=== PATIENT | female | born 1945 | race Caucasian/White ===

== ENCOUNTER 2019-01-13 12:56 | Inpatient (IN) | payer MEDICARE ==
[~2019-01-13] VITALS: Ht 157.5 cm; Wt 73.1 kg
[2019-01-13] VITALS (20 sets, daily range): BP systolic 81–123; BP diastolic 46–86
[~2019-01-13 12:56] MED LIST: ALEVE220 M1 PO; BACTRIM DS TAB1 EACH PO; BONIVA150 MG PO; CENTRUM SILVER1 EAC1 PO; DIOVAN HCT 3201 EAC1 PO; FIBER PO; FLONASE16 GM INH; GLUCOSAMINE &1 EAC1 PO; LEVOFLOXACIN750 MG PO; NORCO 7.5-3251 EACH PO; PANTOPRAZOLE SO40 MG PO
[2019-01-13] MEDS ORDERED: SODIUM CHLORIDE 0.9% 1000ML 1,000 ML IV STA (13:02)
[2019-01-13] MEDS ORDERED: SODIUM CHLORIDE 0.9% 1000ML 2,000 ML ONE (13:07)
[2019-01-13 13:19] LABS: BASOPHILS % 0.5 % (0.0-1.0); EOSINOPHILS # (AUTO) 0.1 (0.0-0.4); EOSINOPHILS % 1.1 % (0.0-6.0); HEMATOCRIT 28.4 % (34.2-44.1); HEMOGLOBIN 9.7 g/dL (12.0-16.0); LYMPHOCYTES # (AUTO) 1.8 (1.0-3.2); LYMPHOCYTES % 24.2 % (18.0-39.1); MEAN CORPUSCULAR HEMOGLOBIN 29.1 pg (28-32); MEAN CORPUSCULAR HGB CONC 34.2 g/dL (31-35); MEAN CORPUSCULAR VOLUME 85.3 fL (81-99); MONOCYTES # (AUTO) 0.6 (0.2-0.8); MONOCYTES % 7.3 % (4.4-11.3); NEUTROPHILS % 66.4 % (38.7-80.0); PLATELET COUNT 314 x10e3/uL (140-360); RED BLOOD COUNT 3.33 x10e6/uL (3.6-5.1); RED CELL DISTRIBUTION WIDTH 12.6 % (11.7-14.4)
[2019-01-13 13:29] LABS: INR 0.9; PROTHROMBIN TIME 12.6 seconds (11.9-14.5)
[2019-01-13] MEDS ORDERED: SODIUM CHLORIDE 0.9% 250ML 250 ML IV ONE (13:30)
[2019-01-13] MEDS ORDERED: SODIUM CHLORIDE 0.9% 1000ML 1,000 ML ONE (13:34)
[2019-01-13] MEDS: NOREPINEPHRINE 8 MG/D5W 250 ML 250 ML IV SCH (13:38)
[2019-01-13 13:45] LABS: ALBUMIN 2.9 g/dL (3.5-5.0); ALBUMIN/GLOBULIN RATIO 0.9 (0.8-2.0); ANION GAP 22.8 mmol/L (8-16); B-TYPE NATRIURETIC PEPTIDE2 85.4 pg/mL (0-100); CALCIUM 9.6 mg/dL (8.4-10.2); CREATININE, SERUM 10.95 mg/dL (0.57-1.11); POTASSIUM 4.8 mmol/L (3.5-5.1)
[2019-01-13 13:46] LABS: BILIRUBIN,URINE NEGATIVE (NEGATIVE); CLARITY,URINE CLOUDY (CLEAR); COLOR,URINE YELLOW (YELLOW); KETONES,URINE NEGATIVE (NEGATIVE); LEUKOCYTE ESTERASE ,URINE LARGE (NEGATIVE); NITRITE,URINE NEGATIVE (NEGATIVE); URINE UROBILINOGEN 0.2 mg/dL (0.2 - 1)
[2019-01-13 13:47] LABS: CREATINE KINASE MB 6.5 ng/mL (0-5.0)
[2019-01-13 13:50] LABS: PROTEIN,URINE DIPSTICK 3+ (NEGATIVE)
[2019-01-13 13:55] LABS: BACTERIA,URINE MANY /HPF; EPITHELIAL CELLS,URINE MANY /LPF; WBC,URINE (MAN) >50 /HPF (0-5)
[2019-01-13] MEDS ORDERED: SODIUM CHLORIDE 0.9% 1000ML 1,000 ML IV SCH ×3 (14:00→21:30)
[2019-01-13] MEDS: CEFTRIAXONE SOD 1 GM/NS 50 ML 50 ML IV SCH (14:07)
--- NOTE | 2019-01-13 14:54 | Diagnostic Imaging Report ---
A single frontal view of the chest. HISTORY: Weakness COMPARISON: None available. DISCUSSION: Portable technique, limits sensitivity of the exam. Overlying artifacts. Tubes/Lines: None Lungs and pleura: The lungs are well inflated. No evidence of a consolidative pneumonia or pulmonary alveolar edema. No definite pleural effusion or pneumothorax is identified. Heart and mediastinum: The cardiomediastinal silhouette appear(s) unremarkable. Bones and soft tissues: Appear unremarkable, given this limited exam. IMPRESSION: No acute radiographic abnormality. Signed by: Dr. Ethan Montero D.O., M.M.M. on 01/13/2019 2:51 PM
[2019-01-13] MEDS ORDERED: NOREPINEPHRINE 8 MG/D5W 250 ML 250 ML IV PRN (15:45)
[2019-01-13] MEDS ORDERED: ONDANSETRON HCL INJ 2MG/ML 2ML 2 MG/ML VIAL IV PRN (15:45)
--- OUTSIDE RECORDS SUMMARY | 2019-01-13 15:50 | XMS REPORT ---
[facility] Address Unknown Phone Unavailable Care Team Providers Care Mems Engineer Name Role Phone KAREN Petra CAIN Unavailable Unavailable Problems This patient has no known problems. Allergies, Adverse Reactions, Alerts This patient has no known allergies or adverse reactions. Medications This patient has no known medications. 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 HISTORY: Wea joy COMPARISON: None available. DISCUSSION: Portable technique, limits sensitivity of the exam. Overlying artifacts. Tubes/Lines: None Lungs and pleura: The lungs are well inflated. No evidence of a consolidative pneumonia or pulmonary alveolar edema. No definite pleural effusion or pneumothorax is identified. Heart and mediastinum: The cardiomediastinal silhouette appear(s) unremarkable. Bones and soft tissues: Appear unremarkable, given this limited exam. IMPRESSION: No acute radiographic abnormality. Signed by: Dr. Mere Montero D.O., M.M.M. on 01/13/2019 2:51 PM Dictated By: MERE MONTERO DO 50 Transcribed By: MAU on 01/13/191450 COPY TO: ZENA FLEMING NP
[2019-01-13] MEDS ORDERED: HYDRALAZINE HCL 20 MG/ML VIAL IV PRN (17:15)
[2019-01-13] MEDS: SODIUM CHLORIDE 0.9% 1000ML 1,000 ML IV SCH (17:45)
--- NOTE | 2019-01-13 18:40 | Diagnostic Imaging Report ---
History: Seizure, fall Comparison studies:None Technique: Axial images were obtained from the brain and cervical spine. Coronal and sagittal images reconstructed from the axial data. Intravenous contrast: None Dose modulation, iterative reconstruction, and/or weight based adjustment of the mA/kV was utilized to reduce the radiation dose to as low as reasonably achievable. Findings: Head CT: Scalp/skull: No abnormalities. No fractures, blastic or lytic lesions. Brain sulci: Mildly prominent. Ventricles: Mild compensatory dilatation. No hydrocephalus. Parenchyma: Scattered small hypodensities in the supratentorial white matter are small vessel ischemic changes. No masses, hemorrhage, acute or chronic cortical vascular insults. Sellar/suprasellar region: No abnormalities. Craniocervical junction: Patent foramen magnum. No Chiari one malformation. Incidental findings: Atherosclerotic calcifications in the carotid siphons . Cervical spine CT: Fractures: None. Soft tissues: No gross abnormalities. Atlantoaxial articulation: Degenerative changes without acute abnormality. Alignment: Straightening of the normal lordosis. Grade 1 anterolisthesis of C7-T1No scoliosis. Cervicomedullary junction: No abnormalities. Patent foramen magnum. Vertebrae: No infection or neoplasm. Degenerative changes: Uncinate process and facet hypertrophy results in moderate to severe multilevel foraminal narrowing from C3-C6. Disc degeneration with decreased intervertebral space and sclerotic changes from C4-C7. No high grade canal stenosis. Incidental findings: none. Impression: Head CT: 1. No acute abnormalities.. Cervical spine CT: 1. No acute abnormalities. 2. Cannot exclude ligament, spinal cord and or vascular abnormalities on the basis of this examination. Signed by: DR Can Nick M.D. on 01/13/2019 6:37 PM
[2019-01-13 18:59] LABS: CALCIUM 9.1 mg/dL (8.4-10.2); CREATININE, SERUM 9.1 mg/dL (0.57-1.11)
[2019-01-13 19:14] LABS: ANION GAP 18.7 mmol/L (8-16); POTASSIUM 4.7 mmol/L (3.5-5.1)
[2019-01-13] MEDS ORDERED: SODIUM CHLORIDE 0.9% 1000ML 500 ML IV SCH (20:45)
--- NOTE | 2019-01-13 22:07 | Diagnostic Imaging Report ---
Exam: Abdominal film Clinical History: Femoral line insertion Comparison: None. DISCUSSION: Right femoral approach central venous catheter tip projects over the expected region of the central right common iliac vein.. Bowel gas pattern is nonobstructive. No mass effect or organomegaly. Multilevel degenerative disc changes of the lumbar spine. IMPRESSION: Right femoral approach central venous catheter tip projects over the expected region of the central right common iliac vein. Signed by: Dr. Tre Paez M.D. on 01/13/2019 10:03 PM
[2019-01-13] MEDS ORDERED: VANCOMYCIN 1GM/NS 250 ML 250 ML IV ONE (22:15)
[2019-01-13 23:23] LABS: ANION GAP 16.3 mmol/L (8-16); CREATININE, SERUM 7.91 mg/dL (0.57-1.11); POTASSIUM 4.3 mmol/L (3.5-5.1)
[2019-01-13 23:36] LABS: MAGNESIUM 2.2 MG/DL (1.3-2.1); PHOSPHORUS 5.5 MG/DL (2.3-4.7)
[2019-01-14] VITALS (49 sets, daily range): BP systolic 84–112; BP diastolic 51–75
[2019-01-14] MEDS: SODIUM CHLORIDE 0.9% 1000ML 1,000 ML IV SCH ×2 (00:14→04:18)
[2019-01-14] MEDS: ACETAMINOPHEN 325 MG TAB PO PRN ×2 (02:20→08:23)
[2019-01-14 05:15] LABS: BASOPHILS % 0.5 % (0.0-1.0); EOSINOPHILS # (AUTO) 0.1 (0.0-0.4); EOSINOPHILS % 1.4 % (0.0-6.0); HEMATOCRIT 23.9 % (34.2-44.1); HEMOGLOBIN 7.9 g/dL (12.0-16.0); LYMPHOCYTES # (AUTO) 1.8 (1.0-3.2); LYMPHOCYTES % 27.7 % (18.0-39.1); MEAN CORPUSCULAR HEMOGLOBIN 29.2 pg (28-32); MEAN CORPUSCULAR HGB CONC 33.1 g/dL (31-35); MEAN CORPUSCULAR VOLUME 88.2 fL (81-99); MONOCYTES # (AUTO) 0.6 (0.2-0.8); NEUTROPHILS # (AUTO) 3.9 (2.1-6.9); NEUTROPHILS % 60.9 % (38.7-80.0); PLATELET COUNT 278 x10e3/uL (140-360); RED BLOOD COUNT 2.71 x10e6/uL (3.6-5.1); RED CELL DISTRIBUTION WIDTH 12.7 % (11.7-14.4)
[2019-01-14 05:41] LABS: ALBUMIN 2.4 g/dL (3.5-5.0); ANION GAP 13.4 mmol/L (8-16); CREATININE, SERUM 6.83 mg/dL (0.57-1.11); MAGNESIUM 2.3 MG/DL (1.3-2.1); POTASSIUM 4.4 mmol/L (3.5-5.1)
--- NOTE | 2019-01-14 05:41 | Diagnostic Imaging Report ---
Examination: Single AP view of the chest. COMPARISON: 01/13/2019 INDICATION: Screening DISCUSSION: Lines/tubes: None. Lungs: Lungs are well-inflated. New patchy opacity at the left lung base. Pleura: There is no pleural effusion or pneumothorax. Heart and mediastinum: The heart and the mediastinum are unremarkable. Bones and soft tissues: No acute bony abnormalities. Degenerative changes in the thoracic spine. IMPRESSION: New patchy opacity at the left lung base likely reflects atelectasis, though the differential diagnosis includes aspiration in the appropriate clinical setting. Signed by: Dr. Tre Paez M.D. on 01/14/2019 5:37 AM
--- NOTE | 2019-01-14 06:31 | Consultation ---
DATE OF CONSULTATION: 01/13/2019 Pulmonary and Critical Care Medicine Consult REASON FOR REFERRAL: Multi-organ failure dysfunction syndrome. HISTORY OF PRESENT ILLNESS: Ms. Gurrola is a pleasant 73-year-old female with multi-organ dysfunction syndrome. The patient with recent history of syncope. The patient recovered since from that event about one week ago. This patient remains in weakness, which is slowly worsening. The patient was carried in from the car. She had near-syncope in the car today when she presented to the emergency room. When she came to the emergency room, her blood pressure was 70 systolic. The patient was given at least 4 L of IV fluid immediately in the ER among her hydration. She required pressors with Levophed of at least 15 mcg/minute. The patient was slightly slow on mentation. Furthermore, the patient was found with acute kidney failure. Pertinent labs include 120 BUN, 9.1 creatinine, 13 bicarbonate, 7.6 white count, 28 hematocrit, and 314 platelets. The patient is mostly able and functional. Her baseline creatinine from labs that were done in 2013 was 1.35. The patient has back pain for decades. She takes at least seven tablets of Motrin a day for the last 10 years. The patient recently saw urologist, where she had overactive bladder and was given medicine. Subsequently, the patient was having trouble urinating and one week ago, she was given another medicine to help release her urine and it worked well. The patient came in with urinalysis demonstrating greater than 50 white blood cells, many epithelial cells, many bacteria, 11-20 rbc's, large LE, negative nitrates. There is 3+ protein and 1+ glucose. It was cloudy appearing reportedly. PAST MEDICAL HISTORY: Hyperlipidemia, hypertension, neuropathy on note, overactive bladder, osteoporosis, gallstones, x3, knee surgery, breast biopsy. MEDICATIONS: Medication list reviewed per the chart record. ALLERGIES: NO KNOWN DRUG ALLERGIES. SOCIAL HISTORY: The patient smoked from age [age], one pack a week and was never a heavy smoker. Alcohol is two drinks a day. No drugs. 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 She has four pet cats. FAMILY HISTORY: Noncontributory. REVIEW OF SYSTEMS: The patient is fatigued and unable to reveal full review of systems. OBJECTIVE: VITAL SIGNS: Noted unstable per record. Levophed has come down to 8 mcg already per minute. GENERAL: Weak, pale, but can talk if you ask her to, with important questions. HEENT: Normocephalic and atraumatic. NECK: Supple. Throat midline. LUNGS: Bilateral air entry, decreased effort, limited, but clear. CARDIOVASCULAR: S1, S2. No murmurs, rubs, or gallops. ABDOMEN: Soft, nonspecific discomfort at lower abdomen, but mild, mostly nontender. EXTREMITIES: No clubbing, no cyanosis, no edema. INTEGUMENT: No rash. No purpura. LABS AND IMAGING: Chest x-ray, no acute radiographic abnormality. Brain CT, no acute findings. C-spine CAT scan, no gross abnormality acute, although there is C3-C6 moderate to severe foraminal narrowing. Abdominal x-ray with no acute changes. IMPRESSION AND PLAN: 1. Septic shock, presumed. 2. Mild encephalopathy, improved. 3. Acute kidney failure, possible chronic kidney disease. 4. Recent issues with urinary overactive bladder and then possible urinary retention secondary to medications. 5. Severe urinary tract infection, severe sepsis. 6. Alcohol excess, two drinks per day. 7. Heavy NSAID use, at least partially contributory to this process. 8. Hypertension. 9. Hyperlipidemia. 10. Reported neuropathy on note. 11. Mild anemia. 12. Metabolic acidosis. Continue pressors. As the patient is getting better, we will hold off on ABG, but do ABG on any significant worsening given the metabolic acidosis noted earlier. Antibiotics dosed. Renal consult. Serial hemodynamic exams and neurologic exams. We will leave the NSAID issue to meeting coordinator, although I am not sure it is the entire history here as there should be a high suggestive of infection. Repeat labs as needed. If there is a lag in patient getting better, we will need echocardiogram. As of now, urinary output is improving, so we will follow up closely. Thank you very much Dr. Billings for allowing me a chance to participate in care of Ms. Gurrola. Do not hesitate to contact me if I can help in any way. MD RIGO Mercado/DORON /[id number]
[2019-01-14] MEDS: HEPARIN SOD (PORCINE) 5,000 UNIT/ML VIAL SC SCH ×2 (08:22→22:21)
[2019-01-14] MEDS ORDERED: MYRBETRIQ25 MG (09:17)
[2019-01-14] MEDS: SODIUM BICARBONATE 8.4% 150 ML in DEXTROSE 5% 1,000 ML IV SCH ×2 (09:44→22:16)
[2019-01-14] MEDS: CEFTRIAXONE SOD 1 GM/NS 50 ML 50 ML IV SCH (13:01)
--- NOTE | 2019-01-14 13:27 | Consultation ---
DATE OF CONSULTATION: REQUESTING PHYSICIANS: 1. Yogesh Moya M.D. 2. Sean Billings M.D. REASON FOR CONSULTATION: Acute kidney injury. HISTORY OF PRESENT ILLNESS: This is a 73-year-old female, who was feeling poorly, prior creatinine about five years ago 1.35 consistent with some element of chronic kidney disease, here with a creatinine of 10.95 after having low blood pressure, feeling poorly, presyncope/syncope. She was given fluid bolus, started on Levophed that is now being weaned down. She appears to have been taking some nonsteroidal anti-inflammatories both chronically and more recently. She also has been on Bactrim, which could account for some of the acute kidney injury. Admission blood pressure was in the 70 systolic that has been stabilized, coming down off the pressors now. Also noted that she has had recurrent urine infections and apparently was given some medicine to help with question retention. Here, the urine again is consistent with urinary tract infection. PAST MEDICAL HISTORY: Likely CKD stage 3, hypertension, neuropathy, history of intermittent retention, dyslipidemia, and chronic NSAID abuse. SOCIAL HISTORY: Prior history of smoking. ALLERGIES: NONE KNOWN. MEDICATIONS: Please see list. Significantly include naproxen as well as sulfamethoxazole/trimethoprim as well as valsartan/hydrochlorothiazide. REVIEW OF SYSTEMS: CONSTITUTIONAL: [place] weak. NEUROLOGIC: Near syncope. CARDIAC: Near syncope. Blood pressure was low on admission. GI: The nausea and vomiting now better. MUSCULOSKELETAL: No pain or arthralgias. Rest of review is negative. PHYSICAL EXAMINATION: GENERAL: Lying in bed, in no distress, appears somewhat frail. VITAL SIGNS: Temperature 97.6, pulse 96, blood pressure 98/55, and respiratory rate 17. HEENT: Early atraumatic. At this point, oral mucosa is moist. NECK: No JVD. CHEST: Clear bilaterally. Breath sounds are equal. CARDIAC: Normal heart tones. Rhythm sounds regular. EXTREMITIES: No edema. ABDOMEN: Benign. Unable to feel the bladder. NEUROLOGIC: Appears to be alert. She is appropriate. LABORATORY DATA: Hemoglobin is 7.9. Sodium is 134, potassium 4.4, CO2 of 14, creatinine down to 6.83 from 9.1, and BUN is down to 104 from 120. Overnight urine output was about 1600 mL. ASSESSMENT: 1. Acute kidney injury is likely multifactorial. 2. Acute tubular necrosis. 3. Volume depletion. 4. Adverse effect of Bactrim. 5. Adverse effect of valsartan and diuretics when she was volume depleted. 6. 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 7. Metabolic acidosis from decreased GFR. 8. Mild hyponatremia, possibly from the volume depletion and residual effect of the hydrochlorothiazide. 9. Hyperphosphatemia and hypermagnesemia from decreased GFR. PLAN: 1. Continue IV hydration with bicarbonate based fluids. At this point, appears to be improving. Would not jump to dialysis. She also feels hemodynamically getting more stable. 2. Serial blood chemistries. 3. Monitor Is and Os. 4. Get renal ultrasound. 5. Avoid sulfa based drugs. 6. Hold any GERA inhibitor, ARB, diuretics for the time being. 7. Await renal ultrasound. Thank you for allowing us to participate in Ms. Gurrola's care. We will follow along with you. MD GILBERT Paz/MODL /[id number]
[2019-01-14] MEDS: NOREPINEPHRINE 8 MG/D5W 250 ML 250 ML IV SCH (14:00)
[2019-01-14] MEDS ORDERED: LACTULOSE SYRUP 20 GM/30 ML UDC PO ONE (14:00)
--- NOTE | 2019-01-14 15:22 | History and Physical ---
PRIMARY CARE PHYSICIAN: Dr. Nye with [facility]. CHIEF COMPLAINT: Dehydration and hypotension due to UTI. HISTORY OF PRESENT ILLNESS: This is a 73-year-old female with past medical history of hypertension, high cholesterol, overactive bladder, and neuropathy, who presented to the ER with complaints of syncope and generalized weakness. She reports having incontinence since December 04. She went to her PCP and urologist, where they had started on medication. She then went for followup 3 weeks later and was told that she had UTI and was started on Bactrim for UTI. She has been on Bactrim for 4 to 5 days when she started feeling weakness, constipation, and was unable to urinate. She denies any fever, chills, chest pain, abdominal pain, nausea, vomiting, headache, or hematuria. Upon arrival to the ER, systolic blood pressure was in the 70s. She was started on aggressive IV fluid hydration. Creatinine was 10.9, received a total of 4 L in the ER and repeated BMP closely. She was started on Levophed for hypotension up to 50 mcg, transferred to ICU for close monitoring. PAST MEDICAL HISTORY: 1. Hypertension. 2. High cholesterol. 3. Overactive bladder. 4. Neuropathy. PAST SURGICAL HISTORY: She had C section x3. She had right knee fracture and replacement. She had appendectomy and tonsillectomy as a child. FAMILY MEDICAL HISTORY: She reports mother had lung cancer and laryngeal cancer. Father smoked his entire life. SOCIAL HISTORY: She quit smoking in 80s, smoked about a pack per week. She drinks 2-3 glasses of wine daily, and denies any illicit drug use. She lives with her . REVIEW OF SYSTEMS: GENERAL: Generalized weakness. HEENT: No mouth sores or head trauma. LUNGS: No shortness of breath or cough. CARDIOVASCULAR: No chest pain. GI: No nausea or vomiting. Reports constipation. NEURO: Alert and oriented. Has dizziness. MUSCULOSKELETAL: Moves all extremities. SKIN: No rash. Dry. PHYSICAL EXAMINATION: VITAL SIGNS: Temperature is 97.4, pulse is 96, blood pressure is 97/61, respirations 14, SpO2 is 100% on 3 L of oxygen. GENERAL: She is in no acute distress. Alert and awake. HEENT: Normocephalic, atraumatic. LUNGS: Clear to auscultation. CARDIOVASCULAR: S1 and S2. No murmurs heard. Normal rate and rhythm. GI: Abdomen is soft, nontender, and nondistended. NEURO: Alert, awake, oriented x3. MUSCULOSKELETAL: No edema. No pain with range of motion. SKIN: Dry and intact. No rash noted. MEDICATIONS: See medication list. LABORATORY DATA: Sodium 134, potassium 4.4, CO2 14, chloride 111, creatinine 6.83, BUN 104. WBC 6.35, hemoglobin 7.9, hematocrit 23.9. PT, PTT 12.6 and 24.0. INR is 0.9. UA upon arrival was cloudy with protein and glucose present, and large amount of leukocytes and WBCs with many bacteria present. Urine culture has been sent and blood cultures also sent. IMAGING DATA: Chest x-ray upon arrival was negative. CT brain also unremarkable for acute process. CT C-spine was also unremarkable for acute process. IMPRESSION: 1. Sepsis likely due to urinary tract infection. 2. Acute kidney failure due to poor p.o. intake. 3. History of hypertension and now hypotensive. 4. High cholesterol. 5. Neuropathy. 6. History of overactive bladder. PLAN: The patient is admitted to the ICU for close monitoring. She is on Levophed, weaning off, currently at 3 mcg. Continue with aggressive IV fluid hydration with bicarb. Monitor BMP daily. Creatinine is now improved to 6.83. Continue to await for urine and blood cultures and resume Rocephin for possible UTI. Dictated by ARTUR Herndon Sean Billings MD MY/MODL /[id number]
[2019-01-14] MEDS: FAMOTIDINE 20 MG TAB PO SCH (17:20)
[2019-01-14] MEDS ORDERED: LIDOCAINE HCL 2% JELLY 5 ML TUBE TOP PRN (17:45)
[2019-01-15] VITALS (19 sets, daily range): BP systolic 95–126; BP diastolic 48–83
[2019-01-15 05:45] LABS: ANION GAP 13.6 mmol/L (8-16); CALCIUM 8.8 mg/dL (8.4-10.2); CREATININE, SERUM 3.44 mg/dL (0.57-1.11); MAGNESIUM 1.8 MG/DL (1.3-2.1); PHOSPHORUS 2.9 MG/DL (2.3-4.7); POTASSIUM 3.6 mmol/L (3.5-5.1)
[2019-01-15 06:28] LABS: FERRITIN 196.03 ng/mL (4.63-204.00)
[2019-01-15] MEDS: FAMOTIDINE 20 MG TAB PO SCH ×2 (07:45→17:34)
[2019-01-15] MEDS: HEPARIN SOD (PORCINE) 5,000 UNIT/ML VIAL SC SCH ×2 (08:25→22:17)
[2019-01-15] MEDS: NOREPINEPHRINE 8 MG/D5W 250 ML 250 ML IV SCH (08:27)
[2019-01-15] MEDS: PREDNISONE 20 MG TAB PO SCH (08:27)
--- NOTE | 2019-01-15 10:00 | Diagnostic Imaging Report ---
EXAM: US RENAL RETROPERITONEAL COMP DATE: 01/15/2019 12:00 AM INDICATION: Acute kidney failure COMPARISON: None FINDINGS: The right kidney is at the lower limits of normal for size measuring 8.2 x 4.9 x 4.9 cm with cortical thickness of 1.0 cm. Cortical echogenicity is within normal limits. There is no evidence for solid renal mass, hydronephrosis, or shadowing calculi. The left kidney is at the lower limits of normal for size measuring 8.6 x 5.6 x 4.6 cm with cortical thickness of 1.5 cm. Cortical echogenicity is within normal limits. There is no evidence for solid renal mass, hydronephrosis, or shadowing calculi. The bladder is only minimally distended with prevoid volume of 20 cc. IMPRESSION: Unremarkable renal ultrasound examination. Signed by: Dr. Radhames Whitehead MD on 01/15/2019 9:56 AM
--- NOTE | 2019-01-15 11:27 | Progress Note ---
DATE: 01/15/2019 SUBJECTIVE: Feeling better, Plata is uncomfortable. Renal function continues to recover. Output has started at 2.8 L. No swelling per patient. No dyspnea per patient. However, urine eosinophils are now positive. PHYSICAL EXAMINATION: VITAL SIGNS: On examination, temperature 97.6, pulse 75, blood pressure 103/48. CHEST: Clear. EXTREMITIES: No edema. SKIN: Dry. Turgor appears to be better. Currently off pressors on IV ceftriaxone. LABORATORY DATA: UA; urine eosinophils are positive on the stain. Creatinine is down to 3.44. Serum CO2 is up to 24, BUN of 70, K is 3.6. Hemoglobin is 7.9. ASSESSMENT: Acute kidney injury. This is likely multifactorial includin. Acute interstitial nephritis. 2. Adverse effect of Bactrim. 3. Adverse effect of the ARB/diuretic in the volume depleted state. 4. Acute tubular necrosis from presumed infection. 5. Volume depletion is improved. 6. Metabolic acidosis is improved. PLAN: 1. For the time being, discontinue IV fluids. Limited steroids to help shorten the course. Given the concern for recent Bactrim infection, I ordering biopsy her, urine cultures were negative, but this is in the setting of recent antibiotic use. 2. Serial chemistries. 3. Encourage p.o. fluid intake. 4. Watch for retention when Plata was removed. Thank you for allowing us to participate in Ms. Gurrola's care. MD URBANO PazK/MODL /[id number]
[2019-01-15] MEDS: CEFTRIAXONE SOD 1 GM/NS 50 ML 50 ML IV SCH (13:05)
--- NOTE | 2019-01-15 13:21 | Diagnostic Imaging Report ---
EXAM: CHEST SINGLE (PORTABLE) DATE: 01/15/2019 11:27 AM INDICATION: Pneumonia COMPARISON: 01/14/2019 FINDINGS: The trachea is midline. The previously identified left basilar opacities appear less prominent on today's examination. There is minimal left basilar atelectasis. There is no evidence for large focal consolidation, pneumothorax, or significant pleural effusion. The cardiomediastinal silhouette is stable in appearance. No acute osseous abnormalities identified. IMPRESSION: No acute cardiopulmonary process identified. Signed by: Dr. Radhames Whitehead MD on 01/15/2019 1:18 PM
--- NOTE | 2019-01-15 14:18 | Progress Note ---
DATE: 01/15/2019 CONSULTING PHYSICIANS: 1. Yogesh Moya MD., with Pulmonary. 2. Hattie Reese MD., with Nephrology. CHIEF COMPLAINT: Dehydration and hypotension with acute renal failure. REVIEW OF SYSTEMS: GENERAL: Feeling much better. HEENT: No mouth sores. LUNGS: No shortness of breath or cough. CARDIOVASCULAR: No chest pain or dizziness. ABDOMEN: No nausea or vomiting. No constipation. NEUROLOGIC: In no acute distress. Alert and oriented. MUSCULOSKELETAL: No swelling and able to move around. SKIN: No rash or bruising noted. PHYSICAL EXAMINATION: VITAL SIGNS: Temperature 97.6, pulse is 94, blood pressure is 95/55, respirations 20, SpO2 is 99%. GENERAL: Alert, awake, and oriented. No acute distress noted. HEENT: Normocephalic, atraumatic. LUNGS: Clear to auscultation. Decreased breath sounds in the lower lobes. CARDIOVASCULAR: S1 and S2. No murmur. ABDOMEN: Soft and nontender. GENITOURINARY: Plata removed. She is voiding without difficulty. NEUROLOGIC: Alert, awake, and oriented x3. MUSCULOSKELETAL: No edema in the lower extremities noted. SKIN: Dry and intact. LABORATORY DATA: Sodium is 140, potassium is 3.6, chloride 106, CO2 24, creatinine 3.44. Her BUN is 70. Her hemoglobin is 7.9 and WBCs are 6.35. Chest x-ray from yesterday showed new patchy opacities in the left lower lobe. Renal ultrasound was unremarkable. IMPRESSION: 1. Acute renal failure due to dehydration and sepsis. 2. Sepsis due to recent history of urinary tract infection. 3. Hypertension, now hypotensive. 4. High cholesterol. 5. Neuropathy. PLAN: The patient is off the pressors, maintaining good blood pressure 122/72. She is off IV fluids. We will recheck her chest x-ray today and repeat labs in the morning. Continue to work with physical therapy. We will transfer out of ICU today. Dictated by ARTUR Herndon Dianneching Cornelio Billings MD MY/MODL /[id number]
[2019-01-16] VITALS (8 sets, daily range): BP systolic 99–153; BP diastolic 52–67
[2019-01-16 06:20] LABS: ANION GAP 13.7 mmol/L (8-16); CALCIUM 9.5 mg/dL (8.4-10.2); CREATININE, SERUM 1.82 mg/dL (0.57-1.11); MAGNESIUM 1.5 MG/DL (1.3-2.1); POTASSIUM 3.7 mmol/L (3.5-5.1)
[2019-01-16] MEDS: HEPARIN SOD (PORCINE) 5,000 UNIT/ML VIAL SC SCH ×2 (08:24→20:59)
[2019-01-16] MEDS: FAMOTIDINE 20 MG TAB PO SCH ×2 (08:40→17:03)
[2019-01-16] MEDS: PREDNISONE 20 MG TAB PO SCH (08:40)
[2019-01-16 08:48] LABS: BASOPHILS % 1.2 % (0.0-1.0); EOSINOPHILS # (AUTO) 0.1 (0.0-0.4); EOSINOPHILS % 1.8 % (0.0-6.0); HEMATOCRIT 24.3 % (34.2-44.1); LYMPHOCYTES # (AUTO) 1.5 (1.0-3.2); LYMPHOCYTES % 45.7 % (18.0-39.1); MEAN CORPUSCULAR HEMOGLOBIN 28.7 pg (28-32); MEAN CORPUSCULAR HGB CONC 32.9 g/dL (31-35); MEAN CORPUSCULAR VOLUME 87.1 fL (81-99); MONOCYTES # (AUTO) 0.5 (0.2-0.8); MONOCYTES % 13.6 % (4.4-11.3); NEUTROPHILS # (AUTO) 1.3 (2.1-6.9); NEUTROPHILS % 37.4 % (38.7-80.0); PLATELET COUNT 287 x10e3/uL (140-360); RED BLOOD COUNT 2.79 x10e6/uL (3.6-5.1); RED CELL DISTRIBUTION WIDTH 12.8 % (11.7-14.4)
[2019-01-16] MEDS ORDERED: ONDANSETRON HCL 4 MG ORAL DISINTEGRATING TAB PO PRN (10:00)
--- NOTE | 2019-01-16 14:13 | Progress Note ---
DATE: 01/16/2019 CHIEF COMPLAINT: Dehydration and acute renal failure due to hypovolemia. REVIEW OF SYSTEMS: GENERAL: No acute distress. HEENT: No headache. No vision loss. LUNGS: No shortness of breath or cough. CARDIOVASCULAR: No chest pain or palpitations. ABDOMEN: No nausea or vomiting. NEUROLOGIC: Alert and oriented. SKIN: Intact. The remainder of review of systems are unremarkable. PHYSICAL EXAMINATION: VITAL SIGNS: 97.9 temperature, pulse is 94, blood pressure 100/61, respirations 19, SpO2 is 100%. GENERAL: Alert, awake, oriented x3. NECK: Supple. LUNGS: Clear to auscultation. CARDIOVASCULAR: S1, S2. No murmurs. ABDOMEN: Soft, nontender, nondistended. Active bowel sounds. EXTREMITIES: Moves all extremities. NEUROLOGY: Alert, awake, oriented x3. SKIN: Intact and dry with no gross abnormalities. : Voiding. LABORATORY DATA: Sodium 137, potassium 3.7, creatinine 1.82 and BUN is 45. WBC 3.37, hemoglobin 8.0, hematocrit 24. IMAGING DATA: Chest x-ray unremarkable. IMPRESSION AND DIAGNOSES: 1. Acute renal failure due to hypovolemia. 2. Urinary tract infection. 3. Hypertension, now hypertensive. 4. High cholesterol. 5. Neuropathy. 6. Chronic back pain. PLAN: We will continue to monitor BMP. Continue physical therapy. We will order a CT of the lumbar spine for her chronic pain, back pain. ARTUR Herndon/DORON /[id number]
[2019-01-16] MEDS: CEFTRIAXONE SOD 1 GM/NS 50 ML 50 ML IV SCH (14:16)
[2019-01-16] MEDS ORDERED: SODIUM CHLORIDE 0.9% 250ML 250 ML ONE (14:22)
[2019-01-16 14:28] LABS: CREATININE,URINE RANDOM 58.82 mg/dL (47-110); TOTAL PROTEIN, URINE 33.1 mg/dL (1-14)
[2019-01-17] VITALS: BP 120/57
[2019-01-17 04:00] VITALS: BP 123/57
[2019-01-17 06:07] LABS: BASOPHILS % 0.7 % (0.0-1.0); EOSINOPHILS # (AUTO) 0.1 (0.0-0.4); EOSINOPHILS % 1.4 % (0.0-6.0); HEMATOCRIT 24.6 % (34.2-44.1); HEMOGLOBIN 7.9 g/dL (12.0-16.0); LYMPHOCYTES % 47.3 % (18.0-39.1); MEAN CORPUSCULAR HEMOGLOBIN 28.5 pg (28-32); MEAN CORPUSCULAR HGB CONC 32.1 g/dL (31-35); MEAN CORPUSCULAR VOLUME 88.8 fL (81-99); MONOCYTES # (AUTO) 0.5 (0.2-0.8); MONOCYTES % 12.1 % (4.4-11.3); NEUTROPHILS # (AUTO) 1.6 (2.1-6.9); NEUTROPHILS % 38.3 % (38.7-80.0); PLATELET COUNT 326 x10e3/uL (140-360); RED BLOOD COUNT 2.77 x10e6/uL (3.6-5.1); RED CELL DISTRIBUTION WIDTH 12.8 % (11.7-14.4)
[2019-01-17 06:39] LABS: ALBUMIN 2.6 g/dL (3.5-5.0); ANION GAP 13.8 mmol/L (8-16); CALCIUM 9.9 mg/dL (8.4-10.2); CREATININE, SERUM 1.34 mg/dL (0.57-1.11); POTASSIUM 3.8 mmol/L (3.5-5.1)
[2019-01-17 07:32] VITALS: BP 115/58
[2019-01-17] MEDS: FAMOTIDINE 20 MG TAB PO SCH ×2 (08:16→18:37)
[2019-01-17] MEDS: PREDNISONE 20 MG TAB PO SCH (08:16)
[2019-01-17 08:18] VITALS: BP 115/58
[2019-01-17] MEDS: HEPARIN SOD (PORCINE) 5,000 UNIT/ML VIAL SC SCH (08:41)
[2019-01-17] MEDS ORDERED: ALLOPURINOL 100 MG TAB PO SCH (09:00)
[2019-01-17 11:29] VITALS: BP 143/72
[2019-01-17] MEDS: CEFTRIAXONE SOD 1 GM/NS 50 ML 50 ML IV SCH (13:30)
--- NOTE | 2019-01-17 14:29 | Diagnostic Imaging Report ---
CT LUMBAR SPINE WO HISTORY: Chronic back pain COMPARISON: None. TECHNIQUE: Axial CT images of the lumbar spine were obtained without contrast. Coronal and sagittal reconstructions obtained from the axial data. One or more of the following dose reduction techniques were used: Automated exposure control, adjustment of the mA and/or kV according to patient size, and/or utilization of iterative reconstruction technique. DISCUSSION: Bone demineralization limits evaluation. There are 5 nonrib-bearing lumbar vertebral bodies. Lumbar lordosis is preserved. There is no significant scoliosis or subluxation. No definite acute fracture or compression deformity is seen is seen. No gross spinal canal mass is seen. There is mild paraspinal muscle atrophy along the lower lumbar spine. Otherwise, the paravertebral and paraspinal soft tissues are unremarkable. Multilevel advanced spondylosis is most prominent at L5-S1. Mild bilateral sacroiliac degenerative changes are present as well. L1-L2: Mild canal stenosis due to disc bulge. Mild left foraminal stenosis due to disc bulge and facet arthrosis. No gross right foraminal stenosis. L2-L3: Minimal grade 1 anterolisthesis of L2 on L3 due to prominent facet arthrosis, right greater than left. At least mild to moderate canal stenosis due to uncovered disc bulge and ligamentum flavum thickening. Moderate right and mild to moderate left foraminal stenoses due to uncovered disc bulge and facet arthrosis. L3-L4: Grade 1 anterolisthesis of L3 on L4 due to prominent facet arthrosis. At least moderate canal stenosis due to uncovered disc bulge and ligamentum flavum thickening. Moderate bilateral foraminal stenoses due to uncovered disc bulge and facet arthrosis. L4-L5: Mild canal stenosis due to disc bulge and ligamentum flavum thickening. Mild right and mild to moderate left foraminal stenoses due to disc bulge and facet arthrosis. L5-S1: Mild canal stenosis due to disc bulge and ligamentum flavum thickening. Moderate bilateral foraminal stenoses due to disc bulge and facet arthrosis. Aortoiliac calcified atherosclerosis is present. IMPRESSION: 1. No acute osseous abnormalities. 2. Multilevel advanced spondylosis, most prominent at L5-S1. 3. Grade 1 anterolisthesis of L2 on L3 and L3 on L4 due to prominent facet arthrosis. 4. Multilevel degenerative canal stenoses - at least moderate at L3-L4. 5. Mild to moderate multilevel bilateral degenerative foraminal stenoses as described above. Signed by: Dr. Jaylon Altamirano M.D. on 01/17/2019 2:25 PM
[2019-01-17 15:49] VITALS: BP 141/68
[2019-01-17] MEDS ORDERED: PREDNISONE10 MG PO (17:06)
--- NOTE | 2019-01-18 05:30 | Discharge Summary ---
CONSULTING PHYSICIANS: Dr. Yogesh Moya with Pulmonary and Dr. Hattie Reese with Nephrology. PRIMARY CARE DOCTOR: Dr. Nye with [facility]. CHIEF COMPLAINT: Dehydration and hypotension due to hypovolemia and renal failure. FINAL DISCHARGE DIAGNOSES: 1. Acute renal failure due to hypovolemia and dehydration. 2. History of urinary tract infection. 3. Hypertension. 4. High cholesterol. 5. Neuropathy. 6. Chronic back pain. PROCEDURES: No procedures during the stay. HISTORY: Per HPI HOSPITAL COURSE: This is a 73-year-old female, who presented to the hospital with hypotension, dehydration, and acute renal failure with a creatinine of 10.9. She was transferred to ICU, started on pressors, Levophed, and IV fluids. Dr. Reese with Nephrology was consulted, she was started on prednisone and bicarb drip. Monitored creatinine level closely. Chest x-ray was unremarkable. CT brain and C-spine were also unremarkable for acute process. Renal ultrasound was unremarkable. We continued to trend her creatinine, today is down to 1.34. She is off fluids and pressors. Blood pressure is sustaining at 143/72. Urine culture was negative, but was kept on Rocephin empirically. She reported taking NSAIDs for her chronic back pain. CT of the lumbar spine showed multilevel advanced spondylosis and degenerative foraminal stenosis. She is advised to avoid nephrotoxic drugs such as NSAIDs. She verbalizes understanding. She is up and walking with physical therapy with no assistance. Vital signs are stable, afebrile, and was discharged home today with instructions to follow up with her PCP for a repeat BMP in 1 to 2 weeks. CONDITION AT DISCHARGE: Stable and improved. DISCHARGE MEDICATIONS: See JUL. FOLLOWUP: 1. Follow up with PCP in 1 to 2 weeks for a repeat BMP. 2. Follow up with spinal specialist or Pain Management for chronic back pain. Total time of discharge is 33 minutes. ARTUR Herndon/ANETTEL /[id number] cc: Dr. Popeye Yuan
[2019-01-21 09:09] LABS: ALPHA 2 GLOBULIN URINE PEP 12.3 % (.)
== END 2019-01-17 19:32 | disposition home or self-care (01) | DRG 871 ==
LOC: ER 12:56 → ERHOLD 15:33 → ICU 16:44 → ERHOLD 01-15 17:32 → ICU 01-15 17:33 → MED/SURG 01-15 19:58
PROVIDERS: ADMIT Internal Medicine; ATTEND Internal Medicine
DX: A41.9 Sepsis, unspecified organism (principal); N17.0 Acute kidney failure with tubular necrosis; R65.21 Severe sepsis with septic shock; E87.2 Acidosis; E87.1 Hypo-osmolality and hyponatremia; G93.40 Encephalopathy, unspecified; N10 Acute pyelonephritis; G62.9 Polyneuropathy, unspecified; G89.29 Other chronic pain; T46.5X5A Adverse effect of other antihypertensive drugs, initial encounter; I12.9 Hypertensive chronic kidney disease with stage 1 through stage 4 chronic kidney disease, or unspecified chronic kidney disease; N18.3 Chronic kidney disease, stage 3 (moderate); E83.39 Other disorders of phosphorus metabolism; T36.8X5A Adverse effect of other systemic antibiotics, initial encounter; Z79.1 Long term (current) use of non-steroidal anti-inflammatories (NSAID); D64.9 Anemia, unspecified; N32.81 Overactive bladder; E86.9 Volume depletion, unspecified; E86.0 Dehydration; I95.9 Hypotension, unspecified; N14.0 Analgesic nephropathy; T39.395A Adverse effect of other nonsteroidal anti-inflammatory drugs [NSAID], initial encounter
CPT/HCPCS: 36415; 51700; 70450; 71045; 72125; 72131; 74018; 76770; 80048; 80053; 81001; 81015; 82550; 82553; 82570; 82728; 83540; 83605; 83735; 83880; 83970; 84100; 84156; 84165; 84166; 84466; 84484; 84550; 85025; 85610; 85730; 86850; 86900; 86920; 87040; 87086; 93005; 99284; C1751; J0696; J1644; J2001; J3370; J7030; J7050; J7070; J7512